=== PATIENT | female | born 1995 | race Caucasian/White ===

== ENCOUNTER 2018-08-26 18:59 | Emergency (ER) | payer OTHER ==
[2016-02-16 15:14] VITALS: Wt 90.7 kg
[~2018-08-26 18:59] MED LIST: ACET-1966 PO; AUG875 PO; CALC-515 PO; CORED OT; FLUT16SP19; IBUP-136 PO; IBUP1TAB78 PO; IBUP800T37 PO; KETO30CA16 IM; LOR5 PO; PER PO; PNV11TAB
--- NOTE | 2018-08-26 19:03 | ER Report ---
History and Physical Time Seen By MD: 19:02 HPI/ROS CHIEF COMPLAINT: Vaginal pain HISTORY OF PRESENT ILLNESS: 22-year-old female with complaint of vaginal pain with intercourse. Today the pain has been much worse. She's been having the pain since childbirth 2 years ago. She actually thinks the pain started before childbirth. She denies vaginal discharge or vaginal bleeding. Patient notes no fever or chills. She denies dysuria. Patient denies significant vaginal tear with childbirth 2 years ago. REVIEW OF SYSTEMS: Respiratory: No cough, no dyspnea. Cardiovascular: No chest pain, no palpitations. Gastrointestinal: No vomiting, no abdominal pain. Musculoskeletal: No back pain. Allergies: Coded Allergies: No Known Drug Allergies (Verified , 08/26/18) Home Meds Discontinued Reported Medications Ibuprofen/Diphenhydramine Cit (IBUPROFEN PM CAPLET) 1 Each Tablet, 1 TAB PO QHS 05/11/18 Ibuprofen (IBUPROFEN) 200 Mg Capsule, 2 CAP PO Q6H, CAPSULE 05/11/18 Discontinued Scripts Fluticasone Prop 50 Mcg Ns (FLONASE 50 MCG NS) 16 Gm [place].susp, 2 SPRAYS NA QDAY for 30 Days, #1 BOT Prov:XAVI FOREMAN JR, MD 06/01/18 Reviewed Nurses Notes: Yes Old Medical Records Reviewed: Yes Hx Smoking: No Smoking Status: Current: Every Day Smoker Exposure to Second Hand Smoke?: No Hx Substance Use Disorder: No Hx Alcohol Use: No Constitutional Vital Sign - Last 24 Hours 08/26/18 08/26/18 08/26/18 08/26/18 19:07 19:09 19:14 19:29 Temp 98.2 Pulse 107 92 94 Resp 18 B/P (MAP) 148/110 (123) 148/110 Pulse Ox 96 96 95 O2 Delivery Room Air 08/26/18 08/26/18 08/26/18 08/26/18 19:30 19:44 19:59 20:00 Pulse 95 95 B/P (MAP) 116/71 (86) 113/72 (86) Pulse Ox 95 96 08/26/18 08/26/18 08/26/18 20:14 20:29 20:30 Pulse 95 95 B/P (MAP) 98/67 (77) Pulse Ox 94 94 Physical Exam General Appearance: The patient is alert, has no immediate need for airway protection and no current signs of toxicity. Eyes: Pupils equal and round no injection. Respiratory: Chest is non tender, lungs are clear to auscultation. Cardiac: regular rate and rhythm Gastrointestinal: Abdomen is soft and non tender, no masses, bowel sounds normal. Genital: Normal external female genitalia, significant discomfort and pain with insertion of the speculum. Swabs were performed for wet prep, GC chlamydia. Musculoskeletal: Neck: Neck is supple and non tender. No lymphadenopathy Extremities have full range of motion and are non tender. Skin: No rashes or lesions. DIFFERENTIAL DIAGNOSIS: After history and physical exam differential diagnosis was considered for vaginal pain him a vaginal infection, Medical Decision Making Data Points Laboratory Hematology Test 08/26/18 19:05 08/26/18 19:54 Urine Color Yellow Urine Clarity Clear Urine pH 6.0 pH (4.8-9.5) Urine Specific [place] 1.024 Urine Protein Negative mg/dL (NEGATIVE) Urine Glucose (UA) Negative mg/dL (NEGATIVE) Urine Ketones Negative mg/dL (NEGATIVE) Urine Blood Negative (NEGATIVE) Urine Nitrite Negative (NEGATIVE) Urine Bilirubin Negative (NEGATIVE) Urine Urobilinogen 2.0 mg/dL (0.2-1.9) Urine Leukocyte Esterase Negative (NEGATIVE) Urine RBC None /HPF (0-2/HPF) Urine WBC 1 /HPF (0-5/HPF) Urine Squamous Epithelial Cells Many /LPF (</=FEW) Urine Bacteria Negative /HPF (NONE-FEW) Urine Mucus None /HPF (NONE-FEW) Urine HCG, Qualitative Negative (NEGATIVE) Chemistry Test 08/26/18 19:05 08/26/18 19:54 Urine Color Yellow Urine Clarity Clear Urine pH 6.0 pH (4.8-9.5) Urine Specific [place] 1.024 Urine Protein Negative mg/dL (NEGATIVE) Urine Glucose (UA) Negative mg/dL (NEGATIVE) Urine Ketones Negative mg/dL (NEGATIVE) Urine Blood Negative (NEGATIVE) Urine Nitrite Negative (NEGATIVE) Urine Bilirubin Negative (NEGATIVE) Urine Urobilinogen 2.0 mg/dL (0.2-1.9) Urine Leukocyte Esterase Negative (NEGATIVE) Urine RBC None /HPF (0-2/HPF) Urine WBC 1 /HPF (0-5/HPF) Urine Squamous Epithelial Cells Many /LPF (</=FEW) Urine Bacteria Negative /HPF (NONE-FEW) Urine Mucus None /HPF (NONE-FEW) Urine HCG, Qualitative Negative (NEGATIVE) Urinalysis Test 08/26/18 19:05 Urine Color Yellow Urine Clarity Clear Urine pH 6.0 pH (4.8-9.5) Urine Specific [place] 1.024 Urine Protein Negative mg/dL (NEGATIVE) Urine Glucose (UA) Negative mg/dL (NEGATIVE) Urine Ketones Negative mg/dL (NEGATIVE) Urine Blood Negative (NEGATIVE) Urine Nitrite Negative (NEGATIVE) Urine Bilirubin Negative (NEGATIVE) Urine Urobilinogen 2.0 mg/dL (0.2-1.9) Urine Leukocyte Esterase Negative (NEGATIVE) Urine RBC None /HPF (0-2/HPF) Urine WBC 1 /HPF (0-5/HPF) Urine Squamous Epithelial Cells Many /LPF (</=FEW) Urine Bacteria Negative /HPF (NONE-FEW) Urine Mucus None /HPF (NONE-FEW) Urine HCG, Qualitative Negative (NEGATIVE) Microbiology Microbiology Date/Time Source Procedure Growth Status 08/26/18 19:54 Vaginal Wet Prep - Final Complete ED Course/Re-evaluation ED Course Patient was admitted to an examination room. H&P was done. The differential diagnoses was considered. On clinical examination. No evidence of infection was found on the wet prep. GC, chlamydia and viral culture for herpes is pending. There was no obvious inflammation. Patient advised follow-up with [facility]. She is advised ibuprofen and Tylenol for pain relief. She could have a Bechets disorder, but no lesions were seen. She may need a biopsy. Decision to Disposition Date: Aug 26, 2018 Decision to Disposition Time: 19:56 Depart Departure Latest Vital Signs Vital Signs Date Time Temp Pulse Resp B/P (MAP) Pulse Ox O2 Delivery O2 Flow Rate FiO2 08/26/18 20:30 98/67 (77) 08/26/18 20:29 95 94 08/26/18 19:09 98.2 18 Room Air Impression: Primary Impression: Dyspareunia Additional Impression: Vaginal pain Condition: Improved Disposition: HOME OR SELF-CARE Referrals: PAUL MERAZ MD New Scripts No Active Prescriptions or Reported Meds Patient Instructions: Dyspareunia in Women (GEN) Additional Instructions: Follow-up with [facility] for evaluation for dyspareunia You will likely need a pelvic ultrasound Problem Qualifiers JABIER TRISTAN DO Aug 26, 2018 19:03
[2018-08-26] MEDS ORDERED: ACETAMINOPHEN 325 MG TAB PO ONE (20:05)
[2018-08-26] MEDS ORDERED: IBUPROFEN 600 MG TAB PO ONE (20:05)
[2018-08-26 20:30] VITALS: BP 98/67
== END 2018-08-26 20:53 | disposition home or self-care (01) ==
LOC: ER 19:12
DX: N94.10 Unspecified dyspareunia (principal)
CPT/HCPCS: 81001; 81025; 87210; 87252; 87491; 87591; 99283